=== PATIENT | female | born 1965 | race Caucasian/White ===

== ENCOUNTER → 2016-12-14 | Outpatient (CLI) | payer BC | LOC: RAD 01:03 | DX: Z12.31 Encounter for screening mammogram for malignant neoplasm of breast (principal) ==

== ENCOUNTER → 2017-12-30 | Outpatient (CLI) | payer BC | LOC: RAD 12-27 12:29 | DX: Z12.31 Encounter for screening mammogram for malignant neoplasm of breast (principal) ==

== ENCOUNTER → 2019-01-02 | Outpatient (CLI) | payer BC | LOC: RAD 03:16 | DX: Z12.31 Encounter for screening mammogram for malignant neoplasm of breast (principal) ==

== ENCOUNTER → 2020-01-15 | Outpatient (CLI) | payer BC | LOC: RAD 09:20 | DX: Z12.31 Encounter for screening mammogram for malignant neoplasm of breast (principal) ==

== ENCOUNTER → 2021-01-23 | Outpatient (CLI) | payer BC | LOC: BC 09:48 | DX: Z12.31 Encounter for screening mammogram for malignant neoplasm of breast (principal) ==